=== PATIENT | female | born 1990 | race African-American/Black ===

== ENCOUNTER 2022-06-17 12:21 | Emergency (ER) | payer BC ==
[2022-06-17 12:47] VITALS: BP 117/68; PULSE 77; RESP 16; TEMP 98.4; BMI 29.6
[2022-06-17 13:56] LABS: THROAT:GRP A STREP NOT DETECTED (NOTDETECTED)
== END 2022-06-17 14:25 | disposition home or self-care (01) ==
LOC: JERFT 12:21 → JER 12:21 → JERFT 14:25
DX: J06.9 Acute upper respiratory infection, unspecified (principal); R05.1 Acute cough; Z20.822 Contact with and (suspected) exposure to COVID-19
CPT/HCPCS: 0241U-QW; 87651; 99283-25